=== PATIENT | female | born 1960 ===

== ENCOUNTER 2022-03-04 10:49 | Emergency (ER) | payer SELFPAY ==
--- NOTE | 2022-03-04 18:23 | ED.ABDPAIN ---
HPI - Abdominal Pain General Stated Complaint: Syncopal episode Discharge Plan Departure Patient Disposition: Left Without Being Seen Clinical Impression: Patient left without being seen
== END 2022-03-04 11:00 | disposition left against medical advice (07) ==
PROVIDERS: Emergency Provider Emergency Medicine